=== PATIENT | female | born 1975 | race Caucasian/White ===

== ENCOUNTER 2024-09-19 23:51 | Inpatient (IN) | payer OTHER, SELFPAY ==
[2024-09-19] VITALS (8 sets, daily range): BP systolic 132–184; BP diastolic 82–106; BMI 22.0
[2024-09-19 19:31] LABS: Hematocrit 24.5 % (37.0-47.0); Hemoglobin 6.7 g/dL (12.0-16.0); Mean Corp Hgb Conc. 27.3 g/dL (33.0-37.0); Mean Corpuscular Hgb 19.8 pg (27.0-31.0); Mean Corpuscular Volume 72.5 fL (81.0-99.0); Platelet Count 224 10^3/uL (130-400); Red Blood Cell Count 3.38 10^6/uL (4.20-5.40); Red Cell Dist. Width 17.8 % (11.5-14.5); White Blood Cell Count 4.9 10^3/uL (4.8-10.8)
[2024-09-19 19:40] LABS: HCG, Serum Qualitative Screen Negative
[2024-09-19 19:45] LABS: ALT (SGPT) 11 U/L (0-35); AST (SGOT) 24 U/L (14-36); Alkaline Phosphatase 65 U/L (38-126); Blood Urea Nitrogen 18 mg/dl (7-17); Calcium 8.7 mg/dl (8.4-10.2); Carbon Dioxide 29 mmol/L (22-30); Chloride 106 mmol/L (98-107); Glucose 104 mg/dl (70-99); Potassium 3.9 mmol/L (3.5-5.1); Sodium 140 mmol/L (135-145); Total Bilirubin 0.4 mg/dl (0.2-1.3); Total Protein 7.1 g/dl (6.3-8.2); eGFR > 60.00
[2024-09-19 19:48] LABS: Anisocytosis 1+; Hypochromasia 3+; Macrocytosis 1+; Normal RBC Morphology No; Ovalocytes 1+; Stomatocytes 2+
[2024-09-19 19:49] LABS: % Basophils 0.8 % (0-2); % Eosinophils 2.5 % (0-6); % Immature Granulocytes 0.2 % (0-0.5); % Lymphocytes 30.9 % (20.5-51.1); % Monocytes 8.2 % (1.7-9.3); % Neutrophils 57.4 % (42.2-75.2); Absolute Eosinophils 0.1 10^3/uL (0-0.7); Absolute Lymphocytes 1.5 10^3/uL (1.2-3.4); Absolute Monocytes 0.4 10^3/uL (0.1-0.6); Absolute Neutrophils 2.8 10^3/uL (1.4-6.5); Nucleated Red Blood Cells % 0 %; Troponin I < 0.012 ng/ml
--- NOTE | 2024-09-19 20:01 | EDRN ---
This RN brought pt back to room #8 via wheelchair with her . When this RN went in to put pt on monitoring and evaluation advisor, pt tearful and asked if her has to be in the room with her stating she wants to be alone. Pt informed she decides who
she wants in the room with her. Pt's got upset, got on his cell phone to tell someone he was being kicked out by pt. Pt said she doesn't want to fight and just wants to be alone. Pt's was asked to leave the room which he did. Pt
says she has 9 children ages 6-21 with 6 children still at home along with a disabled brother she cares for. Pt has been feeling very fatigued recently. Pt complains of discomfort in her chest, heart racing. No known bleeding, dark/black stools.
No hx low hgb or blood transfusions. While talking with pt, pt's HR went into rapid narrow complex rhythm up to 190's. This lasted few seconds and pt returned to NSR. Pt had few episodes of this while RN talking with pt. Reviewed pt's
medications with her and she said her does NOT know she is on suboxone and she does not want him to know she is taking it. Pt asked this RN to update her in the waiting room about everything with NO mention of suboxone.
[2024-09-19] MEDS: NSS 500 IV (20:33)
[2024-09-19] MEDS: ATIVAN 0.5 MG IV (20:42)
[2024-09-19 20:58] LABS: Iron 31 ug/dl (37-170)
[2024-09-19 21:08] LABS: Percent Saturation 7 % (20-50); Total Iron Binding Capacity 438 ug/dl (265-497)
[2024-09-19 21:34] LABS: Ferritin 5.6 ng/ml (6.24-137)
[2024-09-19 22:06] LABS: Folate 6.2 ng/ml (2.76-20); Vitamin B12 292 pg/ml (239-931)
--- NOTE | 2024-09-19 22:20 | ED.GENMED ---
History of Present Illness
General
Chief Complaint: Cardiac Symptoms
Source: patient and family
Exam Limitations: none
Time Seen by Provider: 09/19/24 19:53
Nursing documentation reviewed up to this point in time: agreed with
History of Present Illness
History of Present Illness:
49-year-old female past medical history of seizures hypertension anxiety depression and anemia presenting to the emergency department today with concerns of palpitations stress fatigue weakness over the past few weeks. Denies any specific chest
pain. Denies any GI bleeding or bleeding concerns.
Past History
Past History
ED Past Medical History: HTN and Psychiatric (anxiety)
ED Past Surgical History: Orthopedic
Social History
Tobacco: Non-smoker
Alcohol: Occasional
Drug: None
Personal:
Living: with family
Employment: Not employed
Family History
Family History: Other (Noncontributory)
Review of Systems
Review of Systems
Allergies reviewed?: Yes
All Other Systems: ROS reviewed and negative except as documented in HPI and ROS
Phy Exam
Physical Exam
Physical Exam:
GENERAL: Alert , in no apparent distress
EYE: pupils equal and reactive
NECK: Supple, no significant adenopathy.
ENT: o/p clr, mmm.
CARDIAC: Regular rate and rhythm .
LUNGS: Clear breath sounds bilaterally, no acute respiratory distress, no wheezes/rales/rhonchi
ABDOMEN: Soft, without focal tenderness, no r/g, no cvat guaiac negative stool
NEUROLOGICAL: Alert and oriented, no focal neuro deficits
SKIN: Warm and dry, skin intact.
MUSCULOSKELETAL: No edema, well perfused.
PSYCH: Normal and appropriate interaction.
Course
Orders/Labs/Results
Orders:
Orders
09/19/24 19:15
Electrocardiogram (*1) Urgent
Reason for Study: Chest Pain
EKG- Treatment ONCE
Test Result ONCE
09/19/24 19:16
Complete Blood Count/With Diff Urgent
Comprehensive Metabolic Panel Urgent
HCG, Serum Qualitative Screen Urgent
Comment: Notify provider if positive test present
Troponin I Urgent
09/19/24 20:25
* Blood Bank Products Urgent
Blood Bank Products: *Packed RBC Leuko(PRBC's)
Quantity: 1
Transfuse Today: Yes
Reason: Anemia
0.9% Sodium Chloride 500 ml [Nss] 500 ml IV BOLUS
09/19/24 20:32
Type+Screen Urgent
Ferritin Urgent
Folate Urgent
Iron Urgent
Total Iron Binding Urgent
Vitamin B12 Urgent
09/19/24 20:37
Lorazepam [Ativan] 0.5 mg IV NOW STA
09/19/24 20:50
ABO2 Urgent
BBK Wristband Number:
Associate notified that ABO2 has been ordered: [id number]
Date: 09/19/24
Time: 20:43
Patient Services Manager ID: [id number]
Abnormal Lab Results
09/19/24 09/19/24
19:16 20:32
RBC 3.38 L 10^6/uL
(4.20-5.40)
Hgb 6.7 L* g/dL
(12.0-16.0)
Hct 24.5 L %
(37.0-47.0)
MCV 72.5 L fL
(81.0-99.0)
MCH 19.8 L pg
(27.0-31.0)
MCHC 27.3 L g/dL
(33.0-37.0)
RDW 17.8 H %
(11.5-14.5)
BUN 18 H mg/dl
(7-17)
Glucose 104 H mg/dl
(70-99)
Iron 31 L ug/dl
(37-170)
% Saturation 7 L %
(20-50)
Ferritin 5.6 L ng/ml
(6.24-137)
Crossmatch IS Only See Detail
09/19/24 19:16
09/19/24 19:16
Vital Signs
Initial and Last Documented VS:
Initial Vital Signs
Temp Pulse Resp BP Pulse Ox
98.4 F 84 16 169/105 100
09/19/24 19:10 09/19/24 19:10 09/19/24 19:10 09/19/24 19:10 09/19/24 19:10
Last Documented Vital Signs
Temp Pulse Resp BP Pulse Ox
97.8 F 94 12 142/82 100
09/19/24 21:55 09/19/24 22:15 09/19/24 22:15 09/19/24 22:00 09/19/24 22:15
MDM/Problems Addressed
MDM/Problems Addressed:
49-year-old female presenting to the emergency department today with concerns of palpitations, fatigue weakness over the past week or so. On arrival otherwise vital signs normal. On the monitor here intermittent episodes of heart rate going to the
150s appear to be consistent with sinus tach then improving into the 90s and low 100s. Hemoglobin is 6.7 microcytic. Appears to be consistent with potential iron deficiency anemia. Otherwise concerning the patient's symptomatic anemia and
intermittent tachycardia plan to admit for unit of blood and monitoring.
*Critical Care Note
Total Time (30-74mins, 75-104mins- exclusive of procedures): Not Applicable
ED Attending Note
-
Portions of this chart may have been created with voice recognition software.� Occasional wrong word or��sound alike� substitutions may have occurred due to the inherent limitations of voice recognition software.
Discharge Plan
Departure
Patient Disposition: Admit
Date of Disposition: 09/19/24
Time of Disposition: 22:21
Admit to: Med/Surg
Admit to doctor: Eduardo
Presentation/result/management discussed w/ accepting MD/DO: Hospitalist
Patient with high blood pressure during this ER visit?: No
Condition: Good
Covid-19: Not Applicable
Discharge Problem:
Anemia
Prescriptions:
No Action
nifedipine 90 mg tablet extended release
90 mg PO DAILY
ondansetron HCl 4 mg tablet
4 mg PO Q8H PRN (Reason: nausea)
clonazepam 0.5 mg tablet
0.5 mg PO BID PRN (Reason: anxiety/seizures)
buprenorphine-naloxone 8-2 mg Film
0.5 film BUCCAL DAILY
Patient Comments:
pt prescribed 8mg BID but cuts in half and takes half daily
aspirin 81 mg Capsule
81 mg PO DAILY
gabapentin 800 mg Tablet
800 mg PO QID
Referrals:
UNKNOWN - PT NOT,INTERVIEWE [Family Provider] -
Interventions
Interventions:
*Risk Screen - Suicide Last Done: 09/19/24 19:10
*General Assessment Last Done: 09/19/24 19:58
*Neglect/Abuse Screening Last Done: 09/19/24 19:10
*ED- Fall Risk Assessment Last Done: 09/19/24 19:58
ED- Pulmonary Assessment Last Done: 09/19/24 20:38
ED- Cardiac Assessment Last Done: 09/19/24 20:38
Discharge Date and Time
Print Language: ARABIC
--- NOTE | 2024-09-19 22:42 | HPS.HSE ---
Family Physician
-
Family Physician: Emma Beyer
Chief Complaint
-
palpitations
History of Present Illness
49-year-old female past medical history of chronic anemia, mood disorder, hypertension, opiate dependency, prior suicide attempt, anxiety/depression, presenting with palpitations, fatigue and weakness, shortness of breath and dizziness for the past
few weeks. No chest pain. No GI bleeding or blood in the stool or changes in bowel movements. No abdominal pain.
She has a history of irregular periods which is gotten worse over the past several months with heavy menstrual bleeding at times.
Denies any cardiac history.
Denies any family history of anemia or bleeding.
She denies smoking or alcohol use.
Medical History
Past Medical History
Past Medical History: Reports Other (chronic anemia, mood disorder, hypertension, opiate dependency, prior suicide attempt, anxiety/depression)
Past Surgical History: Reports None
Social History
Tobacco: Non-smoker
Alcohol: None
Drug: None
Family History
Family History: Not pertinent
Allergies / Home Medications
Allergies reflects when Allergies were last updated in [facility].
Home Medications with original date entered in [facility]
Allergy/Medication List:
Allergies
Allergy/AdvReac Type Severity Reaction Status Date / Time
No Known Allergies Allergy Verified 09/19/24 19:11
Home Medications
clonazepam 0.5 mg tablet 0.5 mg PO BID PRN anxiety/seizures 10/10/22
nifedipine 90 mg tablet,extended release 90 mg PO DAILY Blood Pressure 10/10/22
ondansetron HCl 4 mg tablet 4 mg PO Q8H PRN nausea 10/10/22
buprenorphine 8 mg-naloxone 2 mg sublingual film 0.5 film buccal DAILY SUBSTANCE USE DISORDER 10/11/22
aspirin 81 mg capsule 81 mg PO DAILY 09/19/24
gabapentin 800 mg tablet 800 mg PO QID 09/19/24
Review of Systems
-
History Source: Patient
A 12 point ROS was completed and negative except as noted: Yes
Constitutional: Reports No Symptoms
EENT: Reports No Symptoms
Respiratory: Reports See HPI
Cardiac: Reports See HPI
Abdomen/GI: Reports No Symptoms
: Reports No Symptoms
Musculoskeletal: Reports No Symptoms
Skin: Reports No Symptoms
Neurological: Reports No Symptoms
Endocrine: Reports No Symptoms
Hematologic/Lymphatic: Reports No Symptoms
Psych: Reports No Symptoms
Physical Exam
Vital Signs
Vital Signs
Temp Pulse Resp BP Pulse Ox
97.8 F 94 12 142/82 100
09/19/24 21:55 09/19/24 22:15 09/19/24 22:15 09/19/24 22:00 09/19/24 22:15
Physical Exam
General: Well Developed, Well Nourished and No Apparent Distress
HEENT: NormoCephalic, Moist mucous membranes and Atraumatic
Respiratory: Clear
Cardiac: S1/S2 and Regular Rhythm; No Murmur or Rub
GI: Soft, Non Tender, Non Distended and Normal Bowel Sounds; No Organomegaly
Rectal: Deferred by Provider
Musculoskeletal: No Clubbing, No Cyanosis and No Edema
Skin: No Rash
Neuro: Nonfocal/grossly intact
Laboratory Results
-
09/19/24 19:16
09/19/24 19:16
Laboratory Results
Total Bilirubin 0.4 mg/dl (0.2-1.3) 09/19/24 19:16
AST 24 U/L (14-36) 09/19/24 19:16
ALT 11 U/L (0-35) 09/19/24 19:16
Alkaline Phosphatase 65 U/L (38-126) 09/19/24 19:16
Troponin I < 0.012 ng/ml 09/19/24 19:16
Data Reviewed
-
Lab Data: Labs Reviewed by me
Old Records: Reviewed
Impression/Plan
-
IMPRESSION:
PLAN:
# Acute on chronic symptomatic iron deficiency anemia likely secondary to menorrhagia
# Palpitations
-EKG shows normal sinus rhythm
-Telemetry monitoring
-Iron level 31, TIBC 438, percent saturation 7%, ferritin of 5.6 consistent with iron deficiency
-Hemoccult negative
- Hemoglobin 6.7 from 8.9
- Baseline between 8-10
- 1 unit of blood transfusion
-Iron transfusion
- Hold aspirin
Essential hypertension
- Continue nifedipine
Cervical disc disease
- Continue buprenorphine/naloxone
- Continue gabapentin
Prior suicide attempt
Anxiety/depression
- Continue clonazepam,
Full code
DVT prophylaxis�SCDs
Regular diet
[2024-09-20] MEDS: KLONOPIN 0.5 MG PO ×3 (00:14→23:03)
--- NOTE | 2024-09-20 05:51 | PTCARENOTE ---
Patient received from ED via stretcher, patient ambulated independently into room. Patient AAOx3, anxious about being away from her children. Emotional support provided. PRN Klonopin given with good effect. Patient placed on monitor, normal sinus
rhythm. Patient given boxed lunch. POC reviewed with patient. Call thomason with in reach. Will continue to monitor.
[2024-09-20 05:52] LABS: % Basophils 0.8 % (0-2); % Eosinophils 3.4 % (0-6); % Immature Granulocytes 0.2 % (0-0.5); % Lymphocytes 39.5 % (20.5-51.1); % Monocytes 10.3 % (1.7-9.3); % Neutrophils 45.8 % (42.2-75.2); Absolute Eosinophils 0.2 10^3/uL (0-0.7); Absolute Monocytes 0.5 10^3/uL (0.1-0.6); Absolute Neutrophils 2.3 10^3/uL (1.4-6.5); Hematocrit 28.6 % (37.0-47.0); Hemoglobin 8.3 g/dL (12.0-16.0); Mean Corpuscular Hgb 20.9 pg (27.0-31.0); Mean Platelet Volume 10.3 fL (7.4-10.4); Nucleated Red Blood Cells % 0 %; Platelet Count 236 10^3/uL (130-400); Red Blood Cell Count 3.97 10^6/uL (4.20-5.40); Red Cell Dist. Width 17.7 % (11.5-14.5); White Blood Cell Count 4.9 10^3/uL (4.8-10.8)
[2024-09-20 06:04] LABS: ALT (SGPT) 11 U/L (0-35); AST (SGOT) 23 U/L (14-36); Albumin 4.1 g/dl (3.5-5.0); Alkaline Phosphatase 66 U/L (38-126); Blood Urea Nitrogen 12 mg/dl (7-17); Calcium 8.6 mg/dl (8.4-10.2); Carbon Dioxide 28 mmol/L (22-30); Chloride 106 mmol/L (98-107); Estimated Creatinine Clearance 104 ml/min; Glucose 101 mg/dl (70-99); Potassium 3.6 mmol/L (3.5-5.1); Sodium 141 mmol/L (135-145); Total Bilirubin 1.1 mg/dl (0.2-1.3); Total Protein 7.3 g/dl (6.3-8.2); eGFR > 60.00
[2024-09-20 07:21] VITALS: BP 138/86
[2024-09-20] MEDS: PROCARDIA XL (EXTENDED RELEASE) 90 MG PO (08:35)
[2024-09-20] MEDS: NEURONTIN 800 MG PO ×4 (08:36→21:43)
[2024-09-20] MEDS: SUBUTEX 4 MG SL (08:36)
--- NOTE | 2024-09-20 09:06 | W.PN.HOSP.TC ---
Today's Communication/Plan
-
US pelvic/Transvag
follow labs
Property Worker eval
Assessment / Plan
Assessment / Plan
Assessment:
Acute symptomatic anemia, suspected acute on chronic blood loss anemia secondary to menorrhagia
- no evidence of urinary or GI bleeding per history, will monitor. Heme-occult negative.
- s/p 1 unit PRBC with Hb 8.3 from 6.7
- anemia workup suggestive of iron deficiency - IV iron ordered
- Pelvic/TransVag US
- Property Worker consulted
Palpitations
- related to anemia
- tele with sinus tachycardia, asymptomatic now
Essential hypertension
- continue nifedipine
Cervical disc disease
- continue buprenorphine/naloxone
- continue gabapentin
Prior suicide attempt
Anxiety/depression
- continue clonazepam
DVT ppx: SCDs
Code: Full
Anticipated Discharge: Within 24 hours
Subjective/Interval History
-
Date of Service: September 20, 2024
resting comfortably
no chest pain, palpitations or SOB
Hb 8.3 after 1 unit PRBC
Objective Data
-
Labs:
Laboratory Results
09/20/24
04:06
WBC 4.9
Hgb 8.3 L D
Hct 28.6 L
Plt Count 236
Sodium 141
Potassium 3.6
Chloride 106
Carbon Dioxide 28
BUN 12
Creatinine 0.6
Glucose 101 H
Calcium 8.6
Total Bilirubin 1.1
AST 23
ALT 11
Alkaline Phosphatase 66
Vital Signs:
Vital Signs
Temp Pulse Resp BP Pulse Ox
98.0 F 79 16 138/86 97
09/20/24 07:21 09/20/24 07:21 09/20/24 07:21 09/20/24 07:21 09/20/24 07:21
I&O
09/19/24 09/20/24 09/21/24
06:59 06:59 06:59
Intake Total 250 / 250
Balance 250 / 250
Physical Exam
-
General: No Apparent Distress
HEENT: Normocephalic and Atraumatic
Respiratory: Negative Wheezes
Cardiac: Regular Rhythm and S1/S2
GI: Soft and Nontender
Genito-urinary: No Costovertebral Tender
Neuro: AO x 3
Psych: Calm
Data Reviewed
-
Total Time Spent with Patient (in minutes): 43
Labs: Labs Reviewed by me
[2024-09-20 11:02] VITALS: BP 119/78
--- NOTE | 2024-09-20 13:44 | CON.MD ---
Consultation - Medical
-
49 yo female with LMP July 2025 (negative hCG) was admitted to the hospital due to complaints of palpitations fatigue weakness shortness of breath and dizziness. Reports dyspnea on exertion. Has had heavy menses over the past few months
but then skipped period in August and September. She was found to be anemic with a hemoglobin of 6.7 on admission. She received 1 unit of PRBCs and is symptomatically improved. Consultation was requested from NUT GRADER due to anemia and heavy menses.
NUT GRADER history: Patient has not seen territory sales manager in years. It has been several years since last Pap smear. Denies history of abnormal Pap or STI. Reports possible perimenopausal changes. She has been noticing headache and nausea for a few months.
She has nausea just before onset of menses and takes Zofran for this. Denies hot flashes/night sweats.
Menses had been monthly but skipped period August and September. Has nausea preceding her menses. Menses last 5 days and are heavy for 3 with passage of clots. She changes protection approximately every 1-2 hours.
OB history: 6 . 1 child from SIDS at 2 months of age. History gestational hypertension with 4-6. Had magnesium sulfate with pregnancies. Denies preeclampsia diagnosis.
PMH: Chronic anemia, mood disorder, hypertension, opioid dependency, previous suicide attempt, anxiety/depression, menorrhagia, anemia
PSH: Surgery ORIF for broken hip after slip and fall downstairs. She has plates and screws.
NKDA
Medications:
1. Clonazepam 0.5 mg twice daily as needed
2. Nifedipine 90 mg XR daily
3. Ondansetron 4 mg every 8 hours as needed
4. Buprenorphine 8 mg-naloxone 2 mg sublingual
5. Aspirin 81 mg daily
Social history: Negative tobacco, alcohol, drug use. Takes buprenorphine-naloxone.
Family history: Noncontributory
Review of systems as above.
Physical exam:
BP 119/78 temp 97.9 pulse 90
Appearance: Well-appearing female, no acute distress, appears comfortable
Heart: Regular
Lungs: Normal respiratory rate
Abdomen: Soft, nondistended nontender
Speculum exam: Cervix appears normal, no gross lesions, no cervical motion tenderness
Vaginal discharge appears normal
Uterus normal size, mobile, nontender
Adnexa: No fullness or tenderness appreciated
Extremities: No calf pain or tenderness
Labs: Hemoglobin 8.3 hematocrit 28.6 platelet 236
Iron 31
Iron saturation 7%
Ferritin 5.6
T 23
ALT 11
Beta-hCG negative
Pelvic TVUS: Uterus retroverted measuring 8.6 x 6.8 x 4.6 cm. No abdominal focal myometrial masses identified. Endometrial echocomplex measures 0.2 cm. Right ovary measures 2.6 x 2.1 x 2.1 cm with small simple cyst or dominant follicle. Left
ovary measures 2.2 x 1.5 x 1.7 cm. There are no suspicious ovarian or adnexal lesions. No free fluid in the pelvis. Impression: No acute abnormality identified. Retroverted uterus. Otherwise unremarkable exam.
Impression/Plan:
1. Chronic anemia-iron deficiency. S/p 1 unit PRBC. Symptoms have improved. No longer having symptoms with ambulation.
-Possible contributing factor to anemia as her menorrhagia. Patient counseled she should have colonoscopy evaluation as outpatient to rule out other causes for anemia. Patient states Hemoccult test was negative.
2. Menorrhagia-this may be contributing to her anemia. Important to rule out other sources for anemia.
- Recommend outpatient follow-up in office for Pap smear and endometrial biopsy. I reviewed in office hysteroscopy with endometrial biopsy procedure, recommend premedicating with NSAIDs. Explained that the biopsy is relatively quick to perform and
side effects include infection, light bleeding, and menstrual type cramping during procedure and possibly for short time period afterward. Rationale for biopsy is to rule out histologic abnormalities such as endometrial polyp, hyperplasia, EIN or
neoplasia. From NUT GRADER standpoint, she is not actively bleeding and this workup can be performed as an outpatient.
3. History of chronic hypertension
4. History anxiety/depression
Time spent [id number] with the patient, reviewing pertinent records and reports including imaging and labs, coordination of care/follow-up plus documentation was 60 minutes.
[2024-09-20] MEDS: FERRLECIT 110 MG IV (13:59)
[2024-09-20 15:16] VITALS: BP 128/80
[2024-09-20 16:31] LABS: TSH Reflex To Free T4 0.59 uIU/ml (0.47-4.68)
[2024-09-20 19:00] VITALS: BP 131/84
[2024-09-20 23:00] VITALS: BP 131/85
[2024-09-20] MEDS: MELATONIN 5 MG PO (23:02)
[2024-09-21 03:00] VITALS: BP 149/98
[2024-09-21 05:47] LABS: Hematocrit 26.7 % (37.0-47.0); Hemoglobin 7.9 g/dL (12.0-16.0); Mean Corp Hgb Conc. 29.6 g/dL (33.0-37.0); Platelet Count 217 10^3/uL (130-400); Red Blood Cell Count 3.76 10^6/uL (4.20-5.40); Red Cell Dist. Width 17.8 % (11.5-14.5)
[2024-09-21 06:13] LABS: Blood Urea Nitrogen 16 mg/dl (7-17); Calcium 8.7 mg/dl (8.4-10.2); Carbon Dioxide 26 mmol/L (22-30); Chloride 106 mmol/L (98-107); Estimated Creatinine Clearance 89 ml/min; Glucose 91 mg/dl (70-99); Potassium 4.2 mmol/L (3.5-5.1); Sodium 139 mmol/L (135-145); eGFR > 60.00
[2024-09-21 07:05] VITALS: BP 167/97
[2024-09-21] MEDS: PROCARDIA XL (EXTENDED RELEASE) 90 MG PO (08:47)
[2024-09-21] MEDS: SUBUTEX 4 MG SL (08:48)
[2024-09-21] MEDS: NEURONTIN 800 MG PO ×2 (08:48→12:13)
[2024-09-21 11:02] VITALS: BP 130/78
--- NOTE | 2024-09-21 11:29 | W.PN.HOSP.TC ---
Today's Communication/Plan
-
dc home
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
Assessment / Plan
Assessment / Plan
Assessment:
Acute symptomatic anemia, suspected acute on chronic blood loss anemia secondary to menorrhagia
- no evidence of urinary or GI bleeding per history, will monitor. Heme-occult negative.
- s/p 1 unit PRBC with Hb 8.3 from 6.7. Now 7.9
- anemia workup suggestive of iron deficiency - s/p IV iron course. Oral iron at discharge
- Pelvic/TransVag US unremarkable: OP Newspaper Subscription Solicitor f/u for Endometrial Bx
- OP GI eval for colonoscopy
Palpitations
- related to anemia
- tele with sinus tachycardia, asymptomatic now with NSR
Essential hypertension
- continue nifedipine
Cervical disc disease
- continue buprenorphine/naloxone
- continue gabapentin
Prior suicide attempt
Anxiety/depression
- continue clonazepam
DVT ppx: SCDs
Code: Full
More than 30 minutes spent in discharge including
Final examination of the patient
Summarizing hospital stay
Instructions for continuing care to all relevant caregivers
Preparation of discharge records, prescriptions, and referral forms
Total time spent (in minutes): 41
Anticipated Discharge: Today
Subjective/Interval History
-
Date of Service: September 21, 2024
resting comfortably, no complaints
Objective Data
-
Labs:
Laboratory Results
09/21/24 09/21/24
05:08 05:09
WBC 5.0
Hgb 7.9 L
Hct 26.7 L
Plt Count 217
Sodium 139
Potassium 4.2
Chloride 106
Carbon Dioxide 26
BUN 16
Creatinine 0.7
Glucose 91
Calcium 8.7
Vital Signs:
Vital Signs
Temp Pulse Resp BP Pulse Ox
97.9 F 93 18 130/78 98
09/21/24 11:02 09/21/24 11:02 09/21/24 11:02 09/21/24 11:02 09/21/24 11:02
I&O
09/20/24 09/21/24 09/22/24
06:59 06:59 06:59
Intake Total 250 / 250 840 / 840
Balance 250 / 250 840 / 840
Physical Exam
-
General: No Apparent Distress
HEENT: Normocephalic and Atraumatic
Respiratory: Negative Wheezes
Cardiac: Regular Rhythm and S1/S2
GI: Soft and Nontender
Genito-urinary: No Costovertebral Tender
Neuro: AO x 3
Psych: Calm
Data Reviewed
-
Total Time Spent with Patient (in minutes): 41
Labs: Labs Reviewed by me
--- NOTE | 2024-09-21 11:41 | W.DS.TRANS ---
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
-
Discharge Instructions:
Discharge Diagnosis/Procedures anemia with iron deficiency
Diet Regular
Activity As tolerated
Bathing Restrictions None
Instructions:
Stand-Alone Forms:
Changes to Home Medications: No
Discharge Medications:
DC Medications w/original date entered in [employer]
clonazepam 0.5 mg tablet 0.5 mg PO BID PRN anxiety/seizures 10/10/22
nifedipine 90 mg tablet,extended release 90 mg PO DAILY Blood Pressure 10/10/22
ondansetron HCl 4 mg tablet 4 mg PO Q8H PRN nausea 10/10/22
aspirin 81 mg capsule 81 mg PO DAILY Blood Clot Prevention/Tx 09/19/24
gabapentin 800 mg tablet 800 mg PO QID Pain 09/19/24
ferrous sulfate 325 mg (65 mg iron) tablet 325 mg PO DAILY #100 tabs 09/20/24
buprenorphine 8 mg-naloxone 2 mg sublingual film 0.5 film buccal DAILY SUBSTANCE USE DISORDER #4 ea 09/21/24
Home Medication Changes
Pending Results: No
Total time spent discharging patient (in min): 41
[2024-09-21] MEDS: KLONOPIN 0.5 MG PO (12:13)
--- NOTE | 2024-09-21 12:25 | CM ---
Alert awake oriented patient who lives with her Theo in a 2 story home with 2 steps to enter and 20 steps to bed/bathroom. She is independent in activates of daily living.She does not drive recently.She was offered VN she declined need.
Dgt Gilson will drive her home.
NO VN in past . No SNF hx
Pharmacy [facility]
PCP Dr Beyer
PLAN Home with no needs
[2024-09-21] MEDS: ZOFRAN 4 MG PO (12:27)
[2024-09-21 19:22] LABS: FSH 21.7 mIU/ml; Prolactin 11.8 ng/ml (3.0-18.6)
[2024-09-21 19:38] LABS: Testosterone, Total 10.6 ng/dl
[2024-09-22 18:03] LABS: DHEA Sulfate 13 ug/dL (35-256)
== END 2024-09-21 12:59 | disposition home or self-care (01) | DRG 812 ==
LOC: 3 WEST ACU 23:51
PROVIDERS: Hospitalist; Physician Assistant; ADMITTING PHYSICIAN Hospitalist; ATTENDING PHYSICIAN Internal Medicine; CONSULT PHYSICIAN Obstetrics & Gynecology; EMERGENCY PHYSICIAN Student in an Organized Health Care Education/Training Program; FAMILY PHYSICIAN Family Medicine
PROC: 30233N1 Transfusion of Nonautologous Red Blood Cells into Peripheral Vein, Percutaneous Approach (ICD-10-PCS; 2024-09-19)
DX: D50.9 Iron deficiency anemia, unspecified (principal); F11.20 Opioid dependence, uncomplicated; N92.0 Excessive and frequent menstruation with regular cycle; I10 Essential (primary) hypertension; M50.90 Cervical disc disorder, unspecified, unspecified cervical region; Z91.51 Personal history of suicidal behavior; F32.A Depression, unspecified; F41.9 Anxiety disorder, unspecified; Z79.82 Long term (current) use of aspirin
CPT/HCPCS: 36430; 76830; 80048; 80053; 82607; 82626; 82627; 82728; 82746; 83001; 83002; 83540; 83550; 84146; 84403; 84443; 84484; 84703; 85025; 85027; 86850; 86900; 86901; 86920; 93005; 96374; 99285; J2916; P9016